=== PATIENT | male | born 1930 | race Caucasian/White ===

== ENCOUNTER 2016-09-29 10:01 | Emergency (ER) | payer MEDICARE, BC ==
[~2016-09-29] VITALS: Ht 162.6 cm; Wt 65.0 kg
[2016-09-29 10:04] VITALS: BP 130/64; PULSE 67; RESP 18; TEMP 97.4; O2SAT 95
[2016-09-29] MEDS ORDERED: CHOL50006 (10:17)
[2016-09-29] MEDS ORDERED: FISH1000 (10:17)
[2016-09-29] MEDS ORDERED: ARIC10TA PO (10:17)
[2016-09-29] MEDS ORDERED: LEUTIN (10:17)
[2016-09-29] MEDS ORDERED: PAXI20TA PO (10:17)
[2016-09-29] MEDS ORDERED: CENTTAB8 PO (10:17)
[2016-09-29] MEDS ORDERED: LIPI20TA PO (10:17)
[2016-09-29] MEDS ORDERED: TAMS5CAP PO (10:17)
[2016-09-29] MEDS ORDERED: VITA500C9 CHEW (10:17)
--- NOTE | 2016-09-29 10:17 | PD ---
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 His witnessed the fall and says he fell backwards. Since then he was complaining of some left hip pain. She brought him in to get it checked. Patient is not independently ambulatory. He requires a lot of assistance on baseline. He does not appear to be in any significant distress. Vital signs were within acceptable range. [facility] Past Medical History Narrative Medical List of his past medical, surgical, social and family history was reviewed from the nursing note. Social History Tobacco Use: No Allergies-Medications (Allergen,Severity, Reaction): Coded Allergies: No Known Allergies (Unverified , 09/29/16) Comments No known drug allergies. Reported Meds & Prescriptions Reported Meds & Active Scripts Active Reported Centrum Adults (Multiple Vitamins W/ Minerals) 1 Tab 1 Tab PO DAILY Vitamin C (Ascorbic Acid) 500 Mg Chew 500 Mg CHEW BID Fish Oil ([place]-3 Fatty Acids) 1,000 Mg Cap Vitamin D (Cholecalciferol) 5,000 Unit Tab [Leutin] Lipitor (Atorvastatin Calcium) 20 Mg Tab 20 Mg PO HS Paxil (Paroxetine HCl) 20 Mg Tab 20 Mg PO DAILY Aricept (Donepezil) 10 Mg Tab 10 Mg PO HS Flomax (Tamsulosin HCl) 0.4 Mg Cap 0.4 Mg PO HS Narrative Medication List of his home medications reviewed from the nursing note. Review of Systems Except as stated in HPI: all other systems reviewed are Neg Physical Exam Narrative GENERAL: Awake, alert, elderly, extremely hard of hearing SKIN: Focused skin assessment warm/dry. HEAD: Atraumatic. Normocephalic. EYES: Pupils equal and round. No scleral icterus. No injection or drainage. ENT: No nasal bleeding or discharge. Mucous membranes pink and moist. NECK: Trachea midline. No JVD. CARDIOVASCULAR: Regular rate and rhythm. No murmur appreciated. RESPIRATORY: No accessory muscle use. Clear to auscultation. Breath sounds equal bilaterally. GASTROINTESTINAL: Abdomen soft, non-tender, nondistended. Hepatic and splenic margins not palpable. MUSCULOSKELETAL: No obvious deformities. No clubbing. No cyanosis. No edema. Good range of motion at the left and right hip and knee joints. Some tenderness upon palpation over the greater trochanter area NEUROLOGICAL: Awake and alert. No obvious cranial nerve deficits. Motor grossly within normal limits. Normal speech. PSYCHIATRIC: Appropriate mood and affect; insight and judgment normal. Data Data Last Documented VS Vital Signs Date Time Temp Pulse Resp B/P Pulse Ox O2 Delivery O2 Flow Rate FiO2 09/29/16 10:04 97.4 67 18 130/64 95 Orders Hip, Uni(Ap&Lat) W Ap Pelvis (09/29/16 ) MDM Medical Decision Making Medical Screen Exam Complete: Yes Emergency Medical Condition: Yes Medical Record Reviewed: Yes Differential Diagnosis Hip fracture, hip strain, contusion Narrative Course 11 AM x-ray result was back and within normal limits. Did not show any fracture. I will discharge him home. Procedures EKG Prior to Arrival: No Diagnosis Primary Impression: Fall Qualified Code: W19.XXXA - Fall, initial encounter Additional Impression: Contusion Qualified Code: S70.02XA - Contusion of left hip, initial encounter Referrals: Primary Care Physician 3 days Additional Instructions: Please return to the ER if the condition worsens or any other new concerns. Otherwise follow-up with your primary care early next week. He can take Tylenol /Motrin/ibuprofen/Advil for pain. Disposition: 01 DISCHARGE HOME Condition: Stable Walter Valente MD September 29, 2016 10:17
--- NOTE | 2016-09-29 10:55 | RADHPO ---
EXAM DATE/TIME: 09/29/2016 10:38 [facility] COMPARISON: No previous studies available for comparison. INDICATIONS : Patient fell this morning. MEDICAL HISTORY : None. SURGICAL HISTORY : None. ENCOUNTER: Initial ACUITY: 1 day PAIN SCORE: Non-responsive. LOCATION: Left Hip. FINDINGS: Examination of the left hip was performed with AP Pelvis. The primary and secondary trabecular patte rn of the femoral neck is intact. The hip joint is of normal width without significant sclerosis or bony hypertrophy. The acetabulum is grossly intact. CONCLUSION: Unremarkable examination of the left hip. Tremayne Petit MD on September 29, 2016 at 10:54 Board Certified Radiologist. This report was verified electronically.
== END 2016-09-29 11:10 | disposition home or self-care (01) ==
LOC: PHED 10:01
DX: S70.02XA Contusion of left hip, initial encounter (principal); W10.8XXA Fall (on) (from) other stairs and steps, initial encounter; Y92.009 Unspecified place in unspecified non-institutional (private) residence as the place of occurrence of the external cause
CPT/HCPCS: 73502; 99284

== ENCOUNTER 2016-10-14 09:05 | Emergency (ER) | payer MEDICARE, BC ==
[~2016-10-14] VITALS: Ht 170.2 cm; Wt 63.6 kg
[~2016-10-14 09:05] MED LIST changes: -ARIC23TA PO; -CENTCHW4 CHEW; -LIPI10TA PO; -OMEG300C5; -PAXI10TA2 PO; -TRAM50TA PO; -VITA100T53; -VITA400C28
[2016-10-14 09:08] VITALS: BP 114/64; PULSE 80; RESP 16; TEMP 98.3; O2SAT 94
[2016-10-14] MEDS ORDERED: VITA100T53 (09:23)
[2016-10-14] MEDS ORDERED: ARIC23TA PO (09:23)
[2016-10-14] MEDS ORDERED: CENTCHW4 CHEW (09:23)
[2016-10-14] MEDS ORDERED: PAXI10TA2 PO (09:23)
[2016-10-14] MEDS ORDERED: LEUTIN (09:23)
[2016-10-14] MEDS ORDERED: LIPI10TA PO (09:23)
[2016-10-14] MEDS ORDERED: VITA400C28 (09:23)
[2016-10-14] MEDS ORDERED: OMEG300C5 (09:23)
[2016-10-14] MEDS ORDERED: TAMS5CAP PO (09:23)
[2016-10-14] MEDS ORDERED: ACETAMINOPHEN 325 MG TAB PO ONE (09:30)
--- NOTE | 2016-10-14 10:38 | PD ---
HPI Chief Complaint: Back/ Neck Pain or Injury Time Seen by Provider: 09:23 Travel History International Travel<30 days: No Contact w/Intl Traveler<30days: No Traveled to known affect area: No History of Present Illness HPI Patient is a 86 year old male who comes in with his due to back pain. Per his , he fell a couple of weeks ago from a stool and he came in complaining of left hip pain. He had an Xray of his pelvis/hip, which was negative and was discharged home. She says since the fall he has continued to complain of back pain. He seems to not want to be as active because of the pain. She has been giving him Advil for pain. He denies any other complaints. He denies any chest pain, SOB, abdominal pain, or difficulty urinating. He denies numbness or tingling. PFSH Past Medical History Alzheimer's Disease: Yes High Cholesterol: Yes Diabetes: No Diminished Hearing: Yes Tetanus Vaccination: Unknown Past Surgical History Abdominal Surgery: Yes (STMOACH ULCERS) Appendectomy: Yes Social History Alcohol Use: No Tobacco Use: No Substance Use: No Allergies-Medications (Allergen,Severity, Reaction): Coded Allergies: No Known Allergies (Unverified , 10/14/16) Reported Meds & Prescriptions Reported Meds & Active Scripts Active Reported Vitamin C (Ascorbic Acid) 100 Mg Tablet Unknown Dose DAILY Vitamin D (Cholecalciferol) 400 Unit Cap Unknown Dose DAILY PRN Fish Oil ([place]-3 Fatty Acids) 300 Mg Capsule Unknown Dose DAILY Centrum (Multiple Vitamins W/ Minerals) 1 Chew 1 Tab CHEW DAILY [Leutin] Unknown Dose DAILY Lipitor (Atorvastatin Calcium) 10 Mg Tab Unknown Dose PO HS Paxil (Paroxetine HCl) 10 Mg Tab 20 Mg PO DAILY Flomax (Tamsulosin HCl) 0.4 Mg Cap 0.4 Mg PO HS Aricept (Donepezil) 23 Mg Tab Unknown Dose PO HS Do not split, crushed or chewed. Review of Systems General / Constitutional: No: Fever, Chills HENT: No: Headaches, Lightheadedness Cardiovascular: No: Chest Pain or Discomfort Respiratory: No: Shortness of Breath Gastrointestinal: No: Nausea, Vomiting Genitourinary: No: Dysuria, Incontinence Musculoskeletal: Positive: Pain Skin: No Rash, No Change in Pigmentation Neurologic: No: Paresthesia, Sensory Disturbance Physical Exam Narrative GENERAL: Awake and alert, in no acute distress. SKIN: Focused skin assessment warm/dry. HEAD: Atraumatic. Normocephalic. EYES: Pupils equal and round. No scleral icterus. ENT: Mucous membranes pink and moist. CARDIOVASCULAR: Regular rate and rhythm. No murmur appreciated. RESPIRATORY: No accessory muscle use. Clear to auscultation. Breath sounds equal bilaterally. GASTROINTESTINAL: Abdomen soft, non-tender, nondistended. Hepatic and splenic margins not palpable. MUSCULOSKELETAL: No obvious deformities. No clubbing. No cyanosis. No edema. Tender to palpation of the thoracic and lumbar spine. NEUROLOGICAL: Awake and alert. No obvious cranial nerve deficits. Motor grossly within normal limits. Normal speech. No saddle anesthesia. Data Data Last Documented VS Vital Signs Date Time Temp Pulse Resp B/P Pulse Ox O2 Delivery O2 Flow Rate FiO2 10/14/16 09:08 98.3 80 16 114/[address] Thor Spine W/O Contrast (10/14/16 ) Ct Lumb Spine W/O Contrast (10/14/16 ) Acetaminophen (Tylenol) (10/14/16 09:30) Ct Brain W/O Iv Contrast(Rout) (10/14/16 ) Ct Cerv Spine W/O Contrast (10/14/16 ) MDM Medical Decision Making Medical Screen Exam Complete: Yes Emergency Medical Condition: Yes Medical Record Reviewed: Yes Differential Diagnosis Thoracic spine fracture versus lumbar spine fracture versus muscle strain Narrative Course Patient is an 86-year-old male who comes in complaining of back pain after a fall. Exam shows tenderness to the thoracic and lumbar spine. CT of the thoracic spine shows fracture of T4. CT of the lumbar spine shows fractures at L1, L3-L4 age indeterminate. I spoke with Dr. Newell regarding the patient who advises a TLSO brace. Patient given instructions for getting the brace from the main hospital. Given prescription for tramadol. Advised to only take these when going to sleep has a may make him drowsy. Advised to continue Tylenol as needed for pain. Advised follow-up with Dr. Newell. Advised to return to the ED as needed for any worsening symptoms. Diagnosis Primary Impression: Compression fracture of thoracic vertebra Qualified Code: S22.000A - Compression fracture of thoracic vertebra, closed, initial encounter Additional Impression: Compression fracture of lumbar vertebra Qualified Code: S32.000A - Compression fracture of lumbar vertebra, closed, initial encounter Referrals: Mikie Newell MD call for appointment Patient Instructions: General Instructions, Vertebral Compression Fracture (ED) Additional Instructions: You have compression fractures of T4, L1, L3, L4. Wear the TLSO brace as instructed. Take Tylenol as needed for pain. You can take Tramadol for severe pain, but be very careful as it may make you drowsy. Follow up with Dr. Newell of neurosurgery. Return to the ED as needed for any worsening symptoms. Scripts Tramadol 50 Mg Tab50 Mg PO Q6H PRN (PAIN) #10 TAB Ref 0 Prov:Rochelle Garcia MD 10/14/16 Disposition: 01 DISCHARGE HOME Condition: Stable Rochelle Garcia MD Oct 14, 2016 10:38
--- NOTE | 2016-10-14 11:01 | RADHPO ---
EXAM DATE/TIME: 10/14/2016 10:14 [facility] COMPARISON: No previous studies available for comparison. INDICATIONS : Fall, no head complaint. RADIATION DOSE: 59.71 CTDIvol (mGy) MEDICAL HISTORY : Alzheimer's SURGICAL HISTORY : Appendectomy. ENCOUNTER: Initial ACUITY: 2 weeks PAIN SCALE: Non-responsive LOCATION: cranial TECHNIQUE: Multiple contiguous axial images were obtained of the head. Using automated exposure control and adj ustment of the mA and/or kV according to patient size, radiation dose was kept as low as reasonably a chievable to obtain optimal diagnostic quality images. FINDINGS: CEREBRUM: Diffuse prominence of the ventricles, sulci, and cisterns indicating atrophy. No evidence of midline shift, mass lesion, hemorrhage or acute infarction. No extra-axial fluid collections are seen. POSTERIOR FOSSA: The cerebellum and brainstem are intact. The 4th ventricle is midline. The cerebellopontine angle i s unremarkable. EXTRACRANIAL: The visualized portion of the orbits is intact. SKULL: The calvaria is intact. No evidence of skull fracture. CONCLUSION: No acute intracranial findings. Gilberto Lujan MD on October 14, 2016 at 10:55 Board Certified Radiologist. This report was verified electronically.
--- NOTE | 2016-10-14 11:20 | RADHPO ---
EXAM DATE/TIME: 10/14/2016 10:14 [facility] COMPARISON: No previous studies available for comparison. INDICATIONS : Fall. RADIATION DOSE: 26.75 CTDIvol (mGy) MEDICAL HISTORY : Alzheimer's SURGICAL HISTORY : Appendectomy. ENCOUNTER: Initial ACUITY: 2 weeks PAIN SCALE: Non-responsive LOCATION: neck TECHNIQUE: Volumetric scanning of the cervical spine was performed. Multiplanar reconstructions in the sagittal, coronal and oblique axial planes were performed. Using automated exposure control and adjustment o f the mA and/or kV according to patient size, radiation dose was kept as low as reasonably achievable to obtain optimal diagnostic quality images. FINDINGS: VERTEBRAE: Normal vertebral body height. ALIGNMENT: No evidence of subluxation. C2-C3: Moderate severity right-sided facet arthrosis. Central canal diameter within normal limits. Neural fo raminal diameters within normal limits. C3-C4: Moderate bilateral facet arthrosis. Broad-based disc bulge. Central canal diameter within normal limi ts. Neural foraminal diameters within normal limits. C4-C5: Severe bilateral facet arthrosis. Broad-based disc bulge. Mild left neural foraminal narrowing. Mild central canal narrowing. C5-C6: Broad-based disc osteophyte complex. Moderate severity bilateral facet arthrosis. Moderate left neura l foraminal narrowing. Minimal central canal narrowing. C6-C7: Broad-based disc osteophyte complex. Mild bilateral facet arthrosis. Mild bilateral neural foraminal narrowing. Minimal central canal narrowing. C7-T1: No evidence of focal disc protrusion. Central canal normal diameter. Neural foraminal diameters withi n normal limits. CONCLUSION: No evidence of fracture. Multilevel degenerative findings. Gilberto Lujan MD on October 14, 2016 at 10:59 Board Certified Radiologist. This report was verified electronically.
--- NOTE | 2016-10-14 11:32 | RADHPO ---
EXAM DATE/TIME: 10/14/2016 10:14 [facility] COMPARISON: No previous studies available for comparison. INDICATIONS : Fall. RADIATION DOSE: 32.88 CTDIvol (mGy) ; Combined studies - Thoracic Spine/Lumbar Spine MEDICAL HISTORY : Alzheimer's SURGICAL HISTORY : Appendectomy. ENCOUNTER: Initial ACUITY: 2 weeks PAIN SCALE: Non-responsive LOCATION: back TECHNIQUE: Volumetric scanning of the thoracic spine was performed. Multiplanar reconstructions in the sagittal , coronal and oblique axial planes were performed. Using automated exposure control and adjustment o f the mA and/or kV according to patient size, radiation dose was kept as low as reasonably achievable to obtain optimal diagnostic quality images. FINDINGS: Moderate severity superior and inferior endplate concavity and 60% decreased height centrally at the T4 vertebral body. Mild posterior contour convexity but no bony retropulsion of the vertebral body. L umbar fracture deformities will be described on lumbar CT report. T1-T2: Normal. T2-T3: The thecal sac has a normal diameter. No evidence of disc bulge or protrusion. T3-T4: The thecal sac has a normal diameter. No evidence of disc bulge or protrusion. T4-T5: The thecal sac has a normal diameter. No evidence of disc bulge or protrusion. T5-T6: The thecal sac has a normal diameter. No evidence of disc bulge or protrusion. T6-T7: Shallow central disc protrusion. Central canal diameter within normal limits. Neural foraminal diamet ers within normal limits. T7-T8: Broad-based disc osteophyte complex. Central canal diameter within normal limits. Neural foraminal di ameters within normal limits. T8-T9: Broad-based disc osteophyte complex. Central canal diameter within normal limits. Neural foraminal di ameters within normal limits. T9-T10: The thecal sac has a normal diameter. No evidence of disc bulge or protrusion. T10-T11: The thecal sac has a normal diameter. No evidence of disc bulge or protrusion. T11-T12: The thecal sac has a normal diameter. No evidence of disc bulge or protrusion. T12-L1: The thecal sac has a normal diameter. No evidence of disc bulge or protrusion. CONCLUSION: 1. Moderate severity compression fracture the T4 vertebral body, likely acute to subacute. No bony re tropulsion. Central canal diameter within normal limits. 2. Multilevel degenerative findings. Gilberto Lujan MD on October 14, 2016 at 11:25 Board Certified Radiologist. This report was verified electronically.
--- NOTE | 2016-10-14 11:37 | RADHPO ---
EXAM DATE/TIME: 10/14/2016 10:14 [facility] COMPARISON: No previous studies available for comparison. INDICATIONS : Fall. RADIATION DOSE: 32.88 CTDIvol (mGy) ; Combined studies - Thoracic Spine/Lumbar Spine MEDICAL HISTORY : Alzheimer's SURGICAL HISTORY : Appendectomy. ENCOUNTER: Initial ACUITY: 2 weeks PAIN SCALE: Non-responsive LOCATION: back TECHNIQUE: Volumetric scanning of the lumbar spine was performed. Multiplanar reconstructions in the sagittal, coronal and oblique axial planes were performed. Using automated exposure control and adjustment of the mA and/or kV according to patient size, radiation dose was kept as low as reasonably achievable t o obtain optimal diagnostic quality images. FINDINGS: VERTEBRAE: Moderate severity superior endplate concavity and approximately 50% decreased height anteriorly of th e L1 vertebral body. Moderate superior endplate concavity at approximately 30% decreased height at th e L3 vertebral body. Mild superior endplate concavity and 20% decreased height of the L4 vertebral keisha dy. The mild posterior convexity at L1. No bony retropulsion at any of the levels. Grade 1 anterolist hesis L5 on S1. T12-L1: Broad-based disc osteophyte complex. Central canal diameter within normal limits. Neural foraminal di ameters within normal limits. L1-L2: Broad-based disc osteophyte complex. Central canal diameter within normal limits. Neural foraminal di ameters within normal limits. L2-L3: Broad-based disc osteophyte complex. Central canal diameter within normal limits. Neural foraminal di ameters within normal limits. L3-L4: Broad-based disc bulge. Mild central canal narrowing. Neural foraminal diameters within normal limits . L4-L5: Broad-based disc bulge and mild bilateral facet arthrosis. Mild right neural foraminal narrowing. Marie tral canal diameter within normal limits. L5-S1: Bilateral pars interarticularis defect and broad-based disc bulge. Bilateral facet arthrosis. Moderat e bilateral neural foraminal narrowing. Central canal diameter within normal limits. CONCLUSION: 1. Age-indeterminate compression fracture deformities of L1, L3, and L4. Central canal diameter withi n normal limits at these levels. 2. Bilateral pars interarticularis defects of L5 with grade 1 anterolisthesis of L5 on S1. 3. Multilevel degenerative findings. Gilberto Lujan MD on October 14, 2016 at 11:30 Board Certified Radiologist. This report was verified electronically.
[2016-10-14] MEDS ORDERED: TRAM50TA PO (12:09)
== END 2016-10-14 12:25 | disposition home or self-care (01) ==
LOC: PHED 09:05
DX: M48.54XA Collapsed vertebra, not elsewhere classified, thoracic region, initial encounter for fracture (principal); M48.56XA Collapsed vertebra, not elsewhere classified, lumbar region, initial encounter for fracture; M25.552 Pain in left hip; G30.9 Alzheimer's disease, unspecified; W07.XXXA Fall from chair, initial encounter; Y92.009 Unspecified place in unspecified non-institutional (private) residence as the place of occurrence of the external cause; Z47.89 Encounter for other orthopedic aftercare
CPT/HCPCS: 70450; 72125; 72128; 72131

== ENCOUNTER → 2016-10-14 | Outpatient (CLI) | payer MEDICARE, BC ==
[~2016-10-14] MED LIST: ARIC10TA PO; ARIC23TA PO; CENTCHW4 CHEW; CENTTAB8 PO; CHOL50006; FISH1000; LEUTIN; LIPI10TA PO; LIPI20TA PO; OMEG300C5; PAXI10TA2 PO; PAXI20TA PO; TAMS5CAP PO; TRAM50TA PO; VITA100T53; VITA400C28; VITA500C9 CHEW
== END ==
LOC: HORT 14:30
PROVIDERS: ATTEND Emergency Medicine
DX: Z47.89 Encounter for other orthopedic aftercare (principal)
CPT/HCPCS: L0484; L1050; 70450; 72125; 72128; 72131